=== PATIENT | female | born 1995 | race Caucasian/White ===

== ENCOUNTER 2021-04-17 12:37 | Emergency (ER) | payer OTHER ==
[~2021-04-17] VITALS: Ht 167.6 cm; Wt 77.6 kg
[2021-04-17] MEDS ORDERED: METOCLOPRAMIDE HCL 10 MG/2 ML VIAL. IVP ONE (13:30)
[2021-04-17] MEDS ORDERED: IV NORMAL SALINE 1,000ML 1,000 ML IV ONE (13:30)
[2021-04-17] MEDS ORDERED: KETOROLAC 15 MG/ML VIAL. IVP ONE (13:30)
[2021-04-17] MEDS ORDERED: FAMOTIDINE 20 MG/2 ML VIAL IVP ONE (13:30)
[2021-04-17 13:47] LABS: BACTERIA,URINE 0 /HPF (0-FEW); BILIRUBIN,URINE NEG (NEG); CLARITY,URINE HAZY; COLOR,URINE YELLOW; GLUCOSE,URINE NEG (NEG); NITRITE,URINE NEG (NEG); UROBILINOGEN,URINE 0.2 mg/dL (0.2 mg/dL)
[2021-04-17 13:49] LABS: SQUAMOUS EPITHELIAL CELL,UR MANY /LPF
--- NOTE | 2021-04-17 13:57 | RAD ---
CT of the abdomen and pelvis without contrast. 04/17/2021 1:27 PM Indication: Reason: left flank pain, vomiting / Spl. Instructions: / History: Comparison Study: None. Technique: Multidetector CT imaging of the abdomen pelvis is obtained without administration of contr ast. Findings: The visualized bilateral lung bases are clear. The liver, spleen, bilateral adrenal glands, gallbladder, and pancreas have a normal noncontrast enh anced appearance. The bilateral kidneys are unremarkable in appearance. There is no evidence of nephr olithiasis or obstructive uropathy. The ureters are normal in course and caliber. Bladder wall appear s mildly thickened, which may be accentuated by decompressed state. There is no significant free flui d or free air in the abdomen or pelvis. There is no evidence of bowel obstruction or significant infl amatory change. No evidence of appendicitis is identified. There is no acute osseous abnormality iden tified. Impression: 1. Mild apparent bladder wall thickening, possibly accentuated by decompressed state. Recommend clini carlton correlation for cystitis. 2. No evidence of nephrolithiasis or acute obstructive uropathy. CT DOSING PQRS STATEMENT: One or more of the following individualized dose reduction techniques were utilized for this examinat ion: 1. Automated exposure control 2. Adjustment of the mA and/or kV according to patient size 3. Use of iterative reconstruction technique Electronically signed by: Jono Healy MD (04/17/2021 1:54 PM) [id number]
[2021-04-17 14:11] LABS: CALCIUM 8.6 mg/dL (8.5-10.1); CREATININE 0.7 mg/dL (0.6-1.0); GFR 101.1; POTASSIUM 4.4 mmol/L (3.5-5.1)
[2021-04-17 14:13] LABS: BASO # 0.1 x10^3/uL (0.0-0.2); BASO % 1 % (0-3); EOS # 0.1 x10^3/uL (0.0-0.7); EOS % 1 % (0-3); HEMATOCRIT 41.4 % (36.0-47.0); HEMOGLOBIN 13.8 g/dL (12.0-15.5); LYMPH # 1.6 x10^3/uL (1.0-4.8); LYMPH % 12 % (24-48); MEAN CORPUSCULAR HEMOGLOBIN 32 pg (25-35); MEAN CORPUSCULAR HGB CONC 34 g/dL (31-37); MEAN CORPUSCULAR VOLUME 95 fL (79-100); MONO # 1.1 x10^3/uL (0.0-1.1); MONO % 8 % (0-9); NEUT # 10.6 x10^3uL (1.8-7.7); NEUT % 78 % (31-73); PLATELET COUNT 90 x10^3/uL (140-400); RED BLOOD COUNT 4.35 x10^6/uL (3.50-5.40); RED CELL DISTRIBUTION WIDTH 14.8 % (11.5-14.5); WHITE BLOOD COUNT 13.6 x10^3/uL (4.0-11.0)
--- NOTE | 2021-04-17 14:15 | PHYS DOC ---
Past History Additional Past Medical Histor: PTSD Past Surgical History: Other Additional Past Surgical Histo: Left knee, left sinus, tubes as a kid Alcohol Use: None General Adult EDM: Chief Complaint: FLANK PAIN HPI: HPI: Patient is a [age] year old [sex] who presents with [] Review of Systems: Review of Systems: Constitutional: Denies fever or chills Eyes: Denies redness or eye pain HENT: Denies nasal congestion or sore throat Respiratory: Denies cough or shortness of breath Cardiovascular: Denies chest pain or palpitations GI: Denies abdominal pain, nausea, or vomiting : Denies dysuria or hematuria Musculoskeletal: Denies back pain or joint pain Integument: Denies rash or skin lesions Neurologic: Denies headache, focal weakness or sensory changes Complete systems were reviewed and found to be within normal limits, except as documented in this note. Current Medications: Current Meds: Current Medications Medications (Trade) Dose Ordered Sig/Francisco Start Time Stop Time Status Last Admin Dose Admin Famotidine (Pepcid Vial) 20 mg 1X ONCE 04/17/21 13:30 04/17/21 13:31 DC 04/17/21 14:13 20 MG Ketorolac Tromethamine (Toradol 15mg Vial) 15 mg 1X ONCE 04/17/21 13:30 04/17/21 13:31 DC 04/17/21 14:13 15 MG Metoclopramide HCl (Reglan Vial) 10 mg 1X ONCE 04/17/21 13:30 04/17/21 13:31 DC 04/17/21 14:12 10 MG Sodium Chloride 1,000 ml @ 1,000 mls/hr 1X ONCE 04/17/21 13:30 04/17/21 14:29 04/17/21 14:12 1,000 MLS/HR Allergies: Allergies: Allergies Coded Allergies Type Severity Reaction Last Updated Verified latex Allergy Unknown 04/17/21 Yes Physical Exam: PE: Constitutional: Well developed, well nourished, no acute distress, non-toxic appearance HENT: Normocephalic, atraumatic Eyes: PERRL, EOMI, conjunctiva normal, no discharge Neck: Normal range of motion, no tenderness, supple Lungs & Thorax: No respiratory distress, equal chest rise and fall Abdomen: Soft, no tenderness Skin: Warm, dry, no erythema, no rash Back: No tenderness, no CVA tenderness Extremities: No tenderness, ROM intact, no edema Neurologic: Alert and oriented X 3, normal motor function, normal sensory function, no focal deficits noted Psychologic: Affect normal, judgment normal Current Patient Data: Labs: Laboratory Tests Test 04/17/21 12:59 04/17/21 13:03 Urine Collection Type Unknown Urine Color Yellow Urine Clarity Hazy Urine pH 6.0 Urine Specific Homer >=1.030 Urine Protein Neg (NEG-TRACE) Urine Glucose (UA) Neg mg/dL (NEG) Urine Ketones (Stick) 40 mg/dL (NEG) Urine Blood Trace (NEG) Urine Nitrite Neg (NEG) Urine Bilirubin Neg (NEG) Urine Urobilinogen Dipstick 0.2 mg/dL (0.2 mg/dL) Urine Leukocyte Esterase Small (NEG) Urine RBC 1-2 /HPF (0-2) Urine WBC 11-20 /HPF (0-4) Urine Squamous Epithelial Cells Many /LPF Urine Bacteria 0 /HPF (0-FEW) POC Urine HCG, Qualitative hcg negative (Negative) Vital Signs: Vital Signs Date Time Temp Pulse Resp B/P (MAP) Pulse Ox O2 Delivery O2 Flow Rate FiO2 04/17/21 12:54 98.2 78 16 135/74 (94) 100 Room Air EKG: EKG: [] Radiology/Procedures: Radiology/Procedures: PROCEDURE: CT ABDOMEN PELVIS WO CONTRAST CT of the abdomen and pelvis without contrast. 04/17/2021 1:27 PM Indication: Reason: left flank pain, vomiting / Spl. Instructions: / History: Comparison Study: None. Technique: Multidetector CT imaging of the abdomen pelvis is obtained without administration of contrast. Findings: The visualized bilateral lung bases are clear. The liver, spleen, bilateral adrenal glands, gallbladder, and pancreas have a normal noncontrast enhanced appearance. The bilateral kidneys are unremarkable in appearance. There is no evidence of nephrolithiasis or obstructive uropathy. The ureters are normal in course and caliber. Bladder wall appears mildly thickened, which may be accentuated by decompressed state. There is no significant free fluid or free air in the abdomen or pelvis. There is no evidence of bowel obstruction or significant inflamatory change. No evidence of appendicitis is identified. There is no acute osseous abnormality identified. Impression: 1. Mild apparent bladder wall thickening, possibly accentuated by decompressed state. Recommend clinical correlation for cystitis. 2. No evidence of nephrolithiasis or acute obstructive uropathy. CT DOSING PQRS STATEMENT: One or more of the following individualized dose reduction techniques were utilized for this examination: 1. Automated exposure control 2. Adjustment of the mA and/or kV according to patient size 3. Use of iterative reconstruction technique Electronically signed by: Jono Healy MD (04/17/2021 1:54 PM) [id number] Heart Score: C/O Chest Pain: N/A Course & Med Decision Making: Course & Med Decision Making Pertinent Labs and Imaging studies reviewed. (See chart for details) Patient stable for discharge with outpatient follow-up with PCP. Discussed findings and plan with patient, who acknowledges understanding and agreement. Dragon Disclaimer: Devonte Disclaimer: This electronic medical record was generated, in whole or in part, using a voice recognition dictation system. Departure Departure: Impression: Primary Impression: Abdominal pain Qualified Codes: R10.84 - Generalized abdominal pain Additional Impression: Flank pain Disposition: HOME / SELF CARE / HOMELESS Condition: STABLE Referrals: PCPLENA (PCP) KENNETH ARREDONDO MD Patient Instructions: Abdominal Pain (Nonspecific), Flank Pain, [id number] Scripts Sennosides/Docusate Sodium (Colace 2-in-1 Tablet) 1 Each Tablet 1 TAB PO QHS PRN for CONSTIPATION, #20 TAB 0 Refills Prov: CAROLINA ARANGO DO 04/17/21 Hyoscyamine Sulfate (LEVSIN-SL) 0.125 Mg Tab.subl 0.125 MG SL Q4-6HRS PRN for PAIN, #14 TAB Prov: CAROLINA ARANGO DO 04/17/21 Ondansetron (ONDANSETRON ODT) 4 Mg Tab.rapdis 1 TAB PO PRN Q6-8HRS PRN for NAUSEA, #16 TAB Prov: CAROLINA ARANGO DO 04/17/21 CAROLINA ARANGO DO Apr 17, 2021 14:15
[2021-04-17 14:18] LABS: ALBUMIN 3.3 g/dL (3.4-5.0); ALBUMIN/GLOBULIN RATIO 0.9 (1.0-1.7); TOTAL BILIRUBIN 0.4 mg/dL (0.2-1.0)
[2021-04-17 14:27] LABS: PLATELET CLUMP PRESENT; PLT ESTIMATE DECREASED (ADEQUATE)
[2021-04-17 15:30] VITALS: BP 117/61
[2021-04-17] MEDS ORDERED: SENN-121 PO (15:43)
[2021-04-17] MEDS ORDERED: HYOS0.1265 SL (15:43)
[2021-04-17] MEDS ORDERED: ONDA4TAB12 PO (15:43)
== END 2021-04-17 16:05 | disposition home or self-care (01) ==
LOC: ER 12:37
DX: R10.84 Generalized abdominal pain (principal); Z91.040 Latex allergy status
CPT/HCPCS: 36415; 74176; 80053; 81001; 81025; 83690; 83735; 85025; 87086; 96361; 96374; 96375; 99284; J1885; J2765; J3490; J7030

== ENCOUNTER 2021-04-23 07:35 | Emergency (ER) | payer OTHER ==
[~2021-04-23] VITALS: Ht 157.5 cm; Wt 77.9 kg
[~2021-04-23 07:35] MED LIST: HYOS0.1265 SL; ONDA4TAB12 PO; SENN-121 PO
[2021-04-23] MEDS ORDERED: CEPH500C PO (08:05)
--- NOTE | 2021-04-23 08:08 | PHYS DOC ---
Past History Additional Past Medical Histor: PTSD Past Surgical History: Other Additional Past Surgical Histo: Left knee, left sinus, tubes as a kid Alcohol Use: None Adult General Chief Complaint Chief Complaint: ABDOMINAL PAIN HPI HPI Patient is a 26-year-old female presenting for dysuria. States she was seen here 6 days prior and had formal work-up that included an nonconclusive UA and CT imaging of abdomen and pelvis concerning for cystitis. She states she has continued to de oliveira with dysuria, urinary frequency and pelvic pressure. Denies any vaginal bleeding or discharge. States she feels that she has developed right-sided flank pain with subjective fevers and chills which concerned her prompting her to come in for evaluation. Review of Systems Review of Systems Fourteen body systems of review of systems have been reviewed. See HPI for pertinent positives and negative responses, other basilio all other systems are negative, non-pertinent or non-contributory Allergies Allergies Allergies Coded Allergies Type Severity Reaction Last Updated Verified latex Allergy Unknown 04/17/21 Yes Physical Exam Physical Exam Constitutional: Well developed, well nourished, no acute distress, non-toxic appearance. HENT: Normocephalic, atraumatic, bilateral external ears normal, oropharynx moist, no oral exudates, nose normal. Eyes: PERRLA, EOMI, conjunctiva normal, no discharge. Neck: Normal range of motion, no tenderness, supple, no stridor. Cardiovascular: Heart rate regular, sinus rhythm, no murmurs rubs or gallops Lungs & Thorax: Bilateral breath sounds clear to auscultation Abdomen: Bowel sounds normal, soft, no tenderness, no masses, no pulsatile masses. Nonsurgical abdomen, no peritoneal signs Skin: Warm, dry, no erythema, no rash. Back: No tenderness, no CVA tenderness. Extremities: No tenderness, no cyanosis, no clubbing, ROM intact, no edema. Neurologic: Alert and oriented X 3, grossly normal motor & sensory function, no focal deficits noted. Psychologic: Affect normal, judgement normal, mood normal. Current Patient Data Lab Results Laboratory Tests Test 04/23/21 07:49 POC Urine HCG, Qualitative hcg negative (Negative) EKG EKG [] Radiology/Procedures Radiology/Procedures [] Heart Score C/O Chest Pain: No Risk Factors: Risk Factors: DM, Current or recent (<one month) smoker, HTN, HLP, family history of CAD, obesity. Risk Scores: Risk Factors: DM, Current or recent (<one month) smoker, HTN, HLP, family history of CAD, obesity. Course & Med Decision Making Course & Med Decision Making ABCs unremarkable HPI physical exam and comprehensive ER work-up nonconcerning for any emergent or surgical issues Given symptoms and prior evidence of cystitis now with subjective fevers/chills and right flank pain, joint decision made to treat with Keflex. Dose administered today with subsequent prescription written Close outpatient follow-up with primary care physician advised. Strict return precautions discussed and understood by patient prior to ER departure Dragabby Disclaimer Dragon Disclaimer This electronic medical record was generated, in whole or in part, using a voice recognition dictation system. Departure Departure: Impression: Primary Impression: Cystitis Disposition: HOME / SELF CARE / HOMELESS Condition: STABLE Referrals: IRAM NGUYNE MD (PCP) Patient Instructions: Urinary Tract Infection Additional Instructions: You were seen for a urinary tract infection. Please continue to take the antibiotics as prescribed. You should return to the ED if you develop worsening pain, fever, flank pain, or any other new or concerning symptoms. Follow up with primary care for further management if ongoing symptoms. Scripts Cephalexin (KEFLEX) 500 Mg Capsule 2 CAP PO TID for UTI, #28 CAP Prov: MICHELLE ACEVEDO DO 04/23/21 MICHELLE ACEVEDO DO Apr 23, 2021 08:08
[2021-04-23 08:10] VITALS: BP 120/56
[2021-04-23] MEDS ORDERED: CEPHALEXIN 250 MG CAPSULE PO ONE (08:15)
[2021-04-23 08:58] LABS: BACTERIA,URINE 0 /HPF (0-FEW); BILIRUBIN,URINE NEG (NEG); CLARITY,URINE CLEAR; COLOR,URINE YELLOW; GLUCOSE,URINE NEG (NEG); NITRITE,URINE NEG (NEG); RBC,URINE OCC /HPF (0-2); SQUAMOUS EPITHELIAL CELL,UR MOD /LPF
== END 2021-04-23 08:19 | disposition home or self-care (01) ==
LOC: ER 07:35
DX: N30.90 Cystitis, unspecified without hematuria (principal); F43.10 Post-traumatic stress disorder, unspecified; Z91.040 Latex allergy status
CPT/HCPCS: 81001; 81025; 99283